=== PATIENT | female | born 1970 | race Caucasian/White ===

== ENCOUNTER 2016-04-24 15:13 | Emergency (ER) | payer BC, OTHER ==
[~2016-04-24] VITALS: Ht 154.9 cm; Wt 71.5 kg
[~2016-04-24 15:13] MED LIST: ARIP1TAB8 PO; ATOR-54 PO; CHOL100027 PO; CLON0.5T3 PO; FOLI1TAB7 PO; OXCA300T4 PO; TOPI100T20 PO
[2016-04-24 15:17] VITALS: TEMP 36.6; Ht 154.9 cm; Wt 71.5 kg
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
[2016-04-24] MEDS ORDERED: OPTIRAY 320 IV PRN (16:00)
[2016-04-24] MEDS ORDERED: ABL/15 PO (16:01)
[2016-04-24] MEDS ORDERED: TOPI1CAP14 PO (16:01)
[2016-04-24] MEDS ORDERED: BUPR-83 PO (16:03)
[2016-04-24] MEDS ORDERED: LIDOCAINE/EPINEPH/TETRACAINE 1 EA SYR ONE (16:06)
[2016-04-24] MEDS ORDERED: LIDOCAINE/EPINEPH/TETRACAINE 1 EA SYR EXT STA (16:08)
[2016-04-24] MEDS ORDERED: XYLOCAINE 1%/SOD BICARB 20 ML VIAL INFIL ONE (16:15)
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
[2016-04-24 16:37] LABS: ISTAT CREATININE 1.1 mg/dl (0.6-1.3); ISTAT HEMOGLOBIN 14.6 g/dl (12.0-16.0); ISTAT IONIZED CALCIUM 1.23 mmol/l (1.12-1.32)
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
[2016-04-24 18:50] VITALS: BP 153/89; PULSE 76; O2SAT 98
== END 2016-04-24 19:13 | disposition short-term general hospital (02) ==
LOC: EDBD 15:13 → C.EDC 15:13
DX: S06.6X1A Traumatic subarachnoid hemorrhage with loss of consciousness of 30 minutes or less, initial encounter (principal); S01.01XA Laceration without foreign body of scalp, initial encounter; V43.52XA Car driver injured in collision with other type car in traffic accident, initial encounter; F31.9 Bipolar disorder, unspecified; Z79.899 Other long term (current) drug therapy